=== PATIENT | male | born 1980 | race Caucasian/White ===

== ENCOUNTER 2018-11-04 13:00 | Emergency (ER) | payer BC ==
[2018-11-04 13:11] VITALS: TEMP 97.9
--- NOTE | 2018-11-04 13:50 | ED ---
Neuro HPI - General Chief Complaint: Neuro Symptoms/Deficit Stated Complaint: Lt arm numbness/confused Time Seen by Provider: 11/04/18 13:37 Source: patient Mode of arrival: ambulatory Limitations: no limitations - History of Present Illness Is the patient presenting with stroke symptoms?: Yes Initial Comments: This 38-year-old white male presents with the complaint of having some dysarthria as well as left arm tingling which initially occurred at approximately noon today. He states that he had some slurred speech and getting the correct words out which lasted for less than 1 minute and then resolved. His left arm tingling has been persistent since that time. He denies any weakness of his arms or legs. There's been no visual abnormalities, extremity weakness, inability to ambulate or problems with coordination. He denies any shortness of breath, chest pain, or palpitations. He denies any previous similar incidents. He has never had a stroke or CVA in the past. He does not smoke tobacco but does utilize chewing tobacco. He denies any chronic medical conditions and does not take any medications. No other complaints or modifying factors. - Related Data Home Medications: Home Medications Medication Instructions Recorded Confirmed No Known Home Medications 02/12/15 11/04/18 Allergies/Adverse Reactions: Allergies Allergy/AdvReac Type Severity Reaction Status Date / Time No Known Allergies Allergy Verified 11/04/18 13:32 Review of Systems ROS Statement: Those systems with pertinent positive or pertinent negative responses have been documented in the HPI. ROS Other: All systems not noted in ROS Statement are negative. General Exam - General Exam Comments Initial Comments: GENERAL: The patient is well nourished and well hydrated. VITAL SIGNS: Heart rate, blood pressure, respiratory rate reviewed as recorded in nurse's notes. EYES: Pupils are round and reactive. Extraocular movements are intact. No conjunctival / lid redness or swelling. ENT: No external evidence of injury, swelling, or ecchymosis. Airway is patent. Throat is clear. NECK: Nontender. No swelling or evidence of injury. No subcutaneous emphysema. Trachea is midline. No thyroid mass. HEART: Regular rate and rhythm. Good peripheral pulses. LUNGS/CHEST: Breath sounds clear and equal bilaterally. No rales, rhonchi, or wheezes. No ecchymosis, subcutaneous emphysema, or tenderness. ABDOMEN: Abdomen soft without tenderness. No palpable masses or organomegaly. No peritoneal signs. No abdominal wall swelling or ecchymosis. EXTREMITIES: No extremity tenderness. Normal muscle tone and function. No thoracolumbar tenderness. NEUROLOGIC: Sensation is grossly intact. Cranial nerve exam reveals face is symmetrical, tongue is midline, speech is clear. There is no identifiable extremity weakness. The patient is alert and oriented. There is no subjective numbness identified. NIH stroke scale screen is 0. SKIN: No abrasions or ecchymosis is noted. No induration or masses noted. PSYCHIATRIC: Alert and oriented. Appropriate behavior and judgment. Limitations: no limitations Stroke MDM - Lab Data Result diagrams: 11/04/18 13:25 11/04/18 13:25 Lab Results 11/04/18 11/04/18 11/04/18 Range/Units 13:25 13:25 13:25 WBC 9.0 (3.8-10.6) k/uL RBC 5.60 (4.30-5.90) m/uL Hgb 16.2 (13.0-17.5) gm/dL Hct 47.0 (39.0-53.0) % MCV 83.9 (80.0-100.0) fL MCH 28.9 (25.0-35.0) pg MCHC 34.4 (31.0-37.0) g/dL RDW 12.7 (11.5-15.5) % Plt Count 214 (150-450) k/uL Neutrophils % 76 % Lymphocytes % 15 % Monocytes % 5 % Eosinophils % 2 % Basophils % 0 % Neutrophils # 6.9 (1.3-7.7) k/uL Lymphocytes # 1.3 (1.0-4.8) k/uL Monocytes # 0.5 (0-1.0) k/uL Eosinophils # 0.2 (0-0.7) k/uL Basophils # 0.0 (0-0.2) k/uL PT 10.0 (9.0-12.0) sec INR 0.9 (<1.2) APTT 23.1 (22.0-30.0) sec Sodium 141 (137-145) mmol/L Potassium 4.2 (3.5-5.1) mmol/L Chloride 106 (98-107) mmol/L Carbon Dioxide 25 (22-30) mmol/L Anion Gap 10 mmol/L BUN 20 (9-20) mg/dL Creatinine 0.89 (0.66-1.25) mg/dL Est GFR (CKD-EPI)AfAm >90 (>60 ml/min/1.73 sqM) Est GFR (CKD-EPI)NonAf >90 (>60 ml/min/1.73 sqM) Glucose 101 H (74-99) mg/dL Calcium 9.5 (8.4-10.2) mg/dL Total Bilirubin 0.6 (0.2-1.3) mg/dL AST 25 (17-59) U/L ALT 31 (21-72) U/L Alkaline Phosphatase 55 (38-126) U/L Troponin I (0.000-0.034) ng/mL Total Protein 7.2 (6.3-8.2) g/dL Albumin 4.4 (3.5-5.0) g/dL 11/04/18 Range/Units 13:25 WBC (3.8-10.6) k/uL RBC (4.30-5.90) m/uL Hgb (13.0-17.5) gm/dL Hct (39.0-53.0) % MCV (80.0-100.0) fL MCH (25.0-35.0) pg MCHC (31.0-37.0) g/dL RDW (11.5-15.5) % Plt Count (150-450) k/uL Neutrophils % % Lymphocytes % % Monocytes % % Eosinophils % % Basophils % % Neutrophils # (1.3-7.7) k/uL Lymphocytes # (1.0-4.8) k/uL Monocytes # (0-1.0) k/uL Eosinophils # (0-0.7) k/uL Basophils # (0-0.2) k/uL PT (9.0-12.0) sec INR (<1.2) APTT (22.0-30.0) sec Sodium (137-145) mmol/L Potassium (3.5-5.1) mmol/L Chloride (98-107) mmol/L Carbon Dioxide (22-30) mmol/L Anion Gap mmol/L BUN (9-20) mg/dL Creatinine (0.66-1.25) mg/dL Est GFR (CKD-EPI)AfAm (>60 ml/min/1.73 sqM) Est GFR (CKD-EPI)NonAf (>60 ml/min/1.73 sqM) Glucose (74-99) mg/dL Calcium (8.4-10.2) mg/dL Total Bilirubin (0.2-1.3) mg/dL AST (17-59) U/L ALT (21-72) U/L Alkaline Phosphatase (38-126) U/L Troponin I <0.012 (0.000-0.034) ng/mL Total Protein (6.3-8.2) g/dL Albumin (3.5-5.0) g/dL - Medical Decision Making The patient was seen and examined. All diagnostics are reviewed. The EKG shows a sinus bradycardia at a rate of 56. There is no acute ST-T wave changes id entified. The CO intervals 186, QRS duration is 92, the QTc interval 399. The laboratory is reviewed and does not show any acute processes. The patient also had a computed tomography scan of the brain without contrast which was negative for acute processes. The CT angiogram of the head and neck does not show any acute process. It does show some evidence of cervical degenerative arthritis. He relates that when he got back from the computed tomography scan that all of his left arm numbness had completely resolved. The exact cause of his symptoms are not definitively determined. He is offered admission to the hospital but does not want to be admitted. Risks benefits are discussed. Therefore, follow- up with neurology on an outpatient basis is recommended. He is agreeable to this plan and leaves in no distress. He is instructed to take an aspirin daily until notified otherwise by neurology. Return parameters are discussed. Past Medical History Past Medical History: No Reported History History of Any Multi-Drug Resistant Organisms: None Reported Past Surgical History: No Surgical Hx Reported Past Psychological History: No Psychological Hx Reported Smoking Status: Never smoker Past Alcohol Use History: Occasional Past Drug Use History: None Reported Course Vital Signs 11/04/18 13:08 Temperature 97.9 F Pulse Rate 63 Respiratory 20 Rate Blood Pressure 137/86 O2 Sat by Pulse 98 Oximetry Disposition Clinical Impression: Left arm numbness, Dysarthria, Cervical arthritis Disposition: HOME SELF-CARE Condition: Good Instructions (If sedation given, give patient instructions): Paresthesia (ED) Is patient prescribed a controlled substance at d/c from ED?: No Referrals: None,Stated [Primary Care Provider] - 1-2 days Samia Cruz MD [Medical Doctor] - 11/07/18 Time of Disposition: 16:10
[2018-11-04 14:08] LABS: Basophils % (A) 0 %; Eosinophils # (A) 0.2 k/uL (0-0.7); Eosinophils % (A) 2 %; HGB 16.2 gm/dL (13.0-17.5); Lymphocytes # (A) 1.3 k/uL (1.0-4.8); Lymphocytes % (A) 15 %; MCH 28.9 pg (25.0-35.0); MCHC 34.4 g/dL (31.0-37.0); MCV 83.9 fL (80.0-100.0); Mean Platelet Volume 7.5; Monocytes # (A) 0.5 k/uL (0-1.0); Monocytes % (A) 5 %; Neutrophils # (A) 6.9 k/uL (1.3-7.7); Neutrophils % (A) 76 %; Platelet Count 214 k/uL (150-450); RDW 12.7 % (11.5-15.5)
[2018-11-04 14:16] LABS: INR 0.9 (<1.2); Partial Thromboplastin Time 23.1 sec (22.0-30.0)
[2018-11-04 14:21] LABS: ALT 31 U/L (21-72); AST 25 U/L (17-59); African American GFR (CKD) >90 (>60 ml/min/1.73 sqM); Albumin 4.4 g/dL (3.5-5.0); Alkaline Phosphatase 55 U/L (38-126); Anion Gap 10 mmol/L; Blood Urea Nitrogen 20 mg/dL (9-20); Calcium 9.5 mg/dL (8.4-10.2); Carbon Dioxide 25 mmol/L (22-30); Chloride 106 mmol/L (98-107); Glucose 101 mg/dL (74-99); Potassium 4.2 mmol/L (3.5-5.1); Sodium 141 mmol/L (137-145); Total Bilirubin 0.6 mg/dL (0.2-1.3); Total Protein 7.2 g/dL (6.3-8.2)
--- NOTE | 2018-11-04 15:20 | CT ---
EXAMINATION TYPE: CT brain wo con for TPA DATE OF EXAM: 11/04/2018 COMPARISON: None HISTORY: Left arm numbness and confusion. CT DLP: 1205.8 mGycm Automated exposure control for dose reduction was used. FINDINGS: There is no acute intracranial hemorrhage, mass effect, or midline shift identified. The ventricles and sulci are within normal limits in size. The globes are intact and the visualized sinuses are serene ar. IMPRESSION: No acute intracranial hemorrhage, mass effect, or midline shift is seen.
--- NOTE | 2018-11-04 15:30 | CT ---
EXAMINATION TYPE: CT angio head neck DATE OF EXAM: 11/04/2018 HISTORY: Left arm numbness and confusion. COMPARISON: CT brain same date CT DLP: 718 mGycm. Automated Exposure Control for Dose Reduction was Utilized. TECHNIQUE: CTA scan of the neck is performed with IV Contrast, patient injected with 100 mL of Isovu e 370, axial images are obtained, coronal and sagittal reformatted images are reviewed. Three-D recon structed images are created on an independent workstation and reviewed. FINDINGS: Carotid/Vascular Structures: Transverse aorta, innominate, left and right common carotid, left and ri ght subclavian arteries are patent. The internal and extra carotid arteries are patent. There is no e vident dissection or embolus. The vertebral arteries are codominant and patent. No evident aneurysm or dissection, no embolus. Other: There is degenerative disc change in the visualized spine at the level of the C5-6 level spond ylosis and loss of disc height IMPRESSION: No significant abnormality is seen.
[2018-11-04 16:27] VITALS: BP 132/78; PULSE 54; RESP 18
== END 2018-11-04 16:33 | disposition home or self-care (01) ==
LOC: EC 13:00
DX: M47.812 Spondylosis without myelopathy or radiculopathy, cervical region (principal); R47.1 Dysarthria and anarthria; R20.0 Anesthesia of skin; R00.1 Bradycardia, unspecified; R20.2 Paresthesia of skin; Z72.0 Tobacco use
CPT/HCPCS: 99285; 36415; 93005; 80053; 84484; 85025; 85610; 85730; 70496; 70450; 70498; Q9967

== ENCOUNTER → 2018-11-14 | Outpatient (CLI) | payer BC ==
[2018-11-14 18:48] LABS: LDL Cholesterol,Calculated 104.6 mg/dL (0.0-131.0); VLDL Calculation 18.4 mg/dL (5.00-40.00)
== END ==
LOC: LABWHC1 10:46
PROVIDERS: ATTEND Nurse Practitioner Acute Care
DX: R47.81 Slurred speech (principal); R20.2 Paresthesia of skin
CPT/HCPCS: 36415; 80061; 83090